=== PATIENT | female | born 1960 | race Caucasian/White ===

== ENCOUNTER 2024-10-21 03:02 | Emergency (ER) | payer BC, OTHER ==
--- OUTSIDE RECORDS SUMMARY | 2024-10-21 03:05 | XMS REPORT | Continuity of Care Document ---
Author Name Unknown Address [address] [facility] [address] [place] [address] Organization [facility] [place] Address [address] [facility] [address] [place] [address] Care Team Providers Care Electronic Technologist Name Role Phone Mindi Lopez Attending Clinician Unavailable [email or web address]_Kadiyala_S Attending Clinician Unavaila ble GC_GCBZW_Kadiyala_S Admitting Clinician Unavaila ble Payers Payer Name Policy Type Policy Number Effective Date Expirati on Date Source Blue Cross Blue [facility] 6 [id number] [facility] Problems Condition Name Condition Details Condition Category Status Onset Date Resolution Date Last Treatment Date Treating Clinician Comments Source Allergic rhinitis Seasonal and perennial allergic rhinitis Problem [facility] [id number] BMI 50.0-59.9, adult Problem [facility] [id number] Encounter for general adult medical examinatio n with abnormal findings Problem [facility] Obstructiv e sleep apnea Obstructiv e sleep apnea Problem [facility] Morbid obesity Morbid obesity Problem [facility] Hypertensi on Hypertensi on Problem [facility] Hyperlipid emia Hyperlipid emia Problem [facility] [id number] Prediabete s Problem [facility] Allergies, Adverse Reactions, Alerts Allergy Name Allergy Type Status Severity Reaction(s) Onset Date Inactive Date Treating Clinician Comments Source 463 Drug allergy Active swelling [facility] 0 Drug allergy Active rash [facility] Social History Social Habit Start Date Stop Date Quantity Comments Source History of Tobacco Use [facility] Sex Assigned At [facility] Smoking Status Start Date Stop Date Source Never Smoker [facility] Former Smoker 2023-10-17 00:00:00 2023-10-17 00:00:00 [facility] Medications Ordered Medication Name Filled Medication Name Start Date Stop Date Current Medication? Ordering Clinician Indication Dosage Frequency Signature (SIG) Comments Components Source Zepbound 2.5 MG/0.5ML Zepbound 2.5 MG/0.5ML 09-22 00:00: 00 No .5{ml} Zepbound 2.5 MG/0.5ML Rosuvastati n Calcium 20 MG Rosuvastati n Calcium 20 MG No 1{table t} QD Rosuvastat in Calcium 20 MG Cetirizine HCl 10 MG Cetirizine HCl 10 MG No 1{table t} Cetirizine HCl 10 MG Losartan Potassium-H CTZ 100-25 MG Losartan Potassium-H CTZ 100-25 MG No 1{table t} QD Losartan Potassium- HCTZ 100-25 MG Aspirin 81 81 MG Aspirin 81 81 MG No 1{table t} QD Aspirin 81 81 MG Immunizations Ordered Immunization Name Filled Immunization Name Date Status Comments Source Moderna COVID-19 Vaccine Moderna COVID-19 Vaccine 2020-06-25 16:56:00 Completed [facility] Moderna COVID-19 Vaccine Moderna COVID-19 Vaccine 2020-06-25 16:56:00 Completed [facility] Moderna COVID-19 Vaccine Moderna COVID-19 Vaccine 2020-06-25 16:56:00 Completed [facility] Moderna COVID-19 Vaccine Moderna COVID-19 Vaccine 2020-05-24 16:55:00 Completed [facility] Moderna COVID-19 Vaccine Moderna COVID-19 Vaccine 2020-05-24 16:55:00 Completed [facility] Moderna COVID-19 Vaccine Moderna COVID-19 Vaccine 2020-05-24 16:55:00 Completed [facility] Flucelvax - single dose syringe Flucelvax - single dose syringe 2020-02-17 15:50:00 Completed [facility] Flucelvax - single dose syringe Flucelvax - single dose syringe 2020-02-17 15:50:00 Completed [facility] Flucelvax - single dose syringe Flucelvax - single dose syringe 2020-02-17 15:50:00 Completed [facility] Shingrix Shingrix 2018-12-31 15:52:00 Completed [facility] Shingrix Shingrix 2018-12-31 15:52:00 Completed [facility] Shingrix Shingrix 2018-12-31 15:52:00 Completed [facility] Adacel (Tdap) Adacel (Tdap) 2018-08-28 10:38:00 Completed [facility] Adacel (Tdap) Adacel (Tdap) 2018-08-28 10:38:00 Completed [facility] Adacel (Tdap) Adacel (Tdap) 2018-08-28 10:38:00 Completed [facility] TDAP > 7 Years-Adacel TDAP > 7 Years-Adacel 2018-08-28 00:00:00 Completed [facility] Moderna COVID-19 Vaccine Moderna COVID-19 Vaccine Unknown Completed [facility] Shingrix Shingrix Unknown Completed [facility] Flucelvax - single dose syringe Flucelvax - single dose syringe Unknown Completed [facility] Adacel (Tdap) Adacel (Tdap) Unknown Completed [facility] Moderna COVID-19 Vaccine Moderna COVID-19 Vaccine Unknown Completed [facility] Shingrix Shingrix Unknown Completed [facility] Flucelvax - single dose syringe Flucelvax - single dose syringe Unknown Completed [facility] Adacel (Tdap) Adacel (Tdap) Unknown Completed [facility] Moderna COVID-19 Vaccine Moderna COVID-19 Vaccine Unknown Completed [facility] Moderna COVID-19 Vaccine Moderna COVID-19 Vaccine Unknown Completed [facility] Shingrix Shingrix Unknown Completed [facility] Flucelvax - single dose syringe Flucelvax - single dose syringe Unknown Completed [facility] Adacel (Tdap) Adacel (Tdap) Unknown Completed [facility] Moderna COVID-19 Vaccine Moderna COVID-19 Vaccine Unknown Completed [facility] Shingrix Shingrix Unknown Completed [facility] Flucelvax - single dose syringe Flucelvax - single dose syringe Unknown Completed [facility] Adacel (Tdap) Adacel (Tdap) Unknown Completed [facility] Moderna COVID-19 Vaccine Moderna COVID-19 Vaccine Unknown Completed [facility] Shingrix Shingrix Unknown Completed [facility] Flucelvax - single dose syringe Flucelvax - single dose syringe Unknown Completed [facility] Adacel (Tdap) Adacel (Tdap) Unknown Completed [facility] Moderna COVID-19 Vaccine Moderna COVID-19 Vaccine Unknown Completed [facility] Shingrix Shingrix Unknown Completed [facility] Flucelvax (ccIIV4) - SDS - 0.5mL Flucelvax (ccIIV4) - SDS - 0.5mL Unknown Completed [facility] Adacel (Tdap) Adacel (Tdap) Unknown Completed [facility] Moderna COVID-19 Vaccine Moderna COVID-19 Vaccine Unknown Completed [facility] Shingrix Shingrix Unknown Completed [facility] Flucelvax (ccIIV4) - SDS - 0.5mL Flucelvax (ccIIV4) - SDS - 0.5mL Unknown Completed [facility] Adacel (Tdap) Adacel (Tdap) Unknown Completed [facility] Moderna COVID-19 Vaccine Moderna COVID-19 Vaccine Unknown Completed [facility] Shingrix Shingrix Unknown Completed [facility] Flucelvax (ccIIV4) - SDS - 0.5mL Flucelvax (ccIIV4) - SDS - 0.5mL Unknown Completed [facility] Adacel (Tdap) Adacel (Tdap) Unknown Completed [facility] Vital Signs Vital Name Observation Time Observation Value Comments S ource height 2024-09-22 15:00:00 60 [in_i] [facility] weight 2024-09-22 15:00:00 277.4 [lb_av] [facility] temperature 2024-09-22 15:00:00 97.9 [degF] [facility] bmi 2024-09-22 15:00:00 54.17 kg/m2 [facility] oximetry 2024-09-22 15:00:00 98 % [facility] respiratory rate 2024-09-22 15:00:00 16 /min [facility] blood pressure systolic 2024-09-22 15:00:00 136 mm[Hg] [facility] blood pressure diastolic 2024-09-22 15:00:00 63 mm[Hg] [facility] height 2024-07-24 08:20:00 60 [in_i] [facility] weight 2024-07-24 08:20:00 266.0 [lb_av] Co [facility] temperature 2024-07-24 08:20:00 100.2 [degF] [facility] bmi 2024-07-24 08:20:00 51.94 kg/m2 [facility] oximetry 2024-07-24 08:20:00 96 % [facility] respiratory rate 2024-07-24 08:20:00 15 /min [facility] blood pressure systolic 2024-07-24 08:20:00 111 mm[Hg] [facility] blood pressure diastolic 2024-07-24 08:20:00 56 mm[Hg] Common [facility] height 2024-05-22 15:00:00 60 [in_i] [facility] weight 2024-05-22 15:00:00 278.8 [lb_av] Co [facility] temperature 2024-05-22 15:00:00 98 [degF] [facility] bmi 2024-05-22 15:00:00 54.44 kg/m2 [facility] oximetry 2024-05-22 15:00:00 93 % [facility] respiratory rate 2024-05-22 15:00:00 16 /min [facility] blood pressure systolic 2024-05-22 15:00:00 110 mm[Hg] [facility] blood pressure diastolic 2024-05-22 15:00:00 78 mm[Hg] [facility] height 2024-05-22 15:00:00 60 [in_i] [facility] weight 2024-05-22 15:00:00 278.8 [lb_av] [facility] temperature 2024-05-22 15:00:00 98 [degF] [facility] bmi 2024-05-22 15:00:00 54.44 kg/m2 [facility] oximetry 2024-05-22 15:00:00 93 % [facility] respiratory rate 2024-05-22 15:00:00 16 /min [facility] blood pressure systolic 2024-05-22 15:00:00 110 mm[Hg] [facility] blood pressure diastolic 2024-05-22 15:00:00 78 mm[Hg] [facility] height 2024-01-21 15:00:00 60 [in_i] [facility] weight 2024-01-21 15:00:00 277.8 [lb_av] Co [facility] temperature 2024-01-21 15:00:00 97.5 [degF] Com [facility] bmi 2024-01-21 15:00:00 54.25 kg/m2 [facility] oximetry 2024-01-21 15:00:00 97 % [facility] respiratory rate 2024-01-21 15:00:00 16 /min [facility] blood pressure systolic 2024-01-21 15:00:00 124 mm[Hg] [facility] blood pressure diastolic 2024-01-21 15:00:00 78 mm[Hg] [facility] height 2023-10-18 15:00:00 60 [in_i] [facility] weight 2023-10-18 15:00:00 281.6 [lb_av] Co [facility] temperature 2023-10-18 15:00:00 98.2 [degF] Com [facility] bmi 2023-10-18 15:00:00 54.99 kg/m2 [facility] oximetry 2023-10-18 15:00:00 95 % [facility] respiratory rate 2023-10-18 15:00:00 16 /min [facility] blood pressure systolic 2023-10-18 15:00:00 128 mm[Hg] [facility] blood pressure diastolic 2023-10-18 15:00:00 72 mm[Hg] [facility] height 2023-06-18 14:20:00 60 [in_i] [facility] weight 2023-06-18 14:20:00 276.4 [lb_av] [facility] temperature 2023-06-18 14:20:00 97.8 [degF] Com [facility] bmi 2023-06-18 14:20:00 53.97 kg/m2 [facility] oximetry 2023-06-18 14:20:00 98 % [facility] respiratory rate 2023-06-18 14:20:00 16 /min [facility] blood pressure systolic 2023-06-18 14:20:00 132 mm[Hg] [facility] blood pressure diastolic 2023-06-18 14:20:00 76 mm[Hg] [facility] height 2023-03-14 10:40:00 60 [in_i] [facility] weight 2023-03-14 10:40:00 276.4 [lb_av] [facility] temperature 2023-03-14 10:40:00 98.1 [degF] [facility] bmi 2023-03-14 10:40:00 53.97 kg/m2 [facility] oximetry 2023-03-14 10:40:00 97 % [facility] respiratory rate 2023-03-14 10:40:00 16 /min [facility] blood pressure systolic 2023-03-14 10:40:00 124 mm[Hg] [facility] blood pressure diastolic 2023-03-14 10:40:00 86 mm[Hg] [facility] height 2023-03-14 10:40:00 60 [in_i] [facility] weight 2023-03-14 10:40:00 276.4 [lb_av] [facility] temperature 2023-03-14 10:40:00 98.1 [degF] [facility] bmi 2023-03-14 10:40:00 53.97 kg/m2 [facility] oximetry 2023-03-14 10:40:00 97 % [facility] respiratory rate 2023-03-14 10:40:00 16 /min [facility] blood pressure systolic 2023-03-14 10:40:00 124 mm[Hg] [facility] blood pressure diastolic 2023-03-14 10:40:00 86 mm[Hg] [facility] height 2022-10-17 16:20:00 60 [in_i] [facility] weight 2022-10-17 16:20:00 272.4 [lb_av] [facility] temperature 2022-10-17 16:20:00 98.8 [degF] [facility] bmi 2022-10-17 16:20:00 53.19 kg/m2 [facility] oximetry 2022-10-17 16:20:00 96 % [facility] respiratory rate 2022-10-17 16:20:00 16 /min [facility] blood pressure systolic 2022-10-17 16:20:00 138 mm[Hg] [facility] blood pressure diastolic 2022-10-17 16:20:00 71 mm[Hg] [facility] height 2022-05-24 16:00:00 60 [in_i] [facility] weight 2022-05-24 16:00:00 267 [lb_av] [facility] temperature 2022-05-24 16:00:00 99.0 [degF] [facility] bmi 2022-05-24 16:00:00 52.14 kg/m2 [facility] oximetry 2022-05-24 16:00:00 97 % [facility] respiratory rate 2022-05-24 16:00:00 17 /min [facility] blood pressure systolic 2022-05-24 16:00:00 138 mm[Hg] [facility] blood pressure diastolic 2022-05-24 16:00:00 78 mm[Hg] [facility] height 2022-02-20 16:20:00 60 [in_i] [facility] weight 2022-02-20 16:20:00 264.8 [lb_av] [facility] temperature 2022-02-20 16:20:00 98.5 [degF] Com [facility] bmi 2022-02-20 16:20:00 51.71 kg/m2 [facility] oximetry 2022-02-20 16:20:00 95 % [facility] respiratory rate 2022-02-20 16:20:00 20 /min [facility] blood pressure systolic 2022-02-20 16:20:00 118 mm[Hg] [facility] blood pressure diastolic 2022-02-20 16:20:00 58 mm[Hg] [facility] height 2021-11-21 16:20:00 60 [in_i] [facility] weight 2021-11-21 16:20:00 270 [lb_av] [facility] temperature 2021-11-21 16:20:00 97.5 [degF] [facility] bmi 2021-11-21 16:20:00 52.73 kg/m2 [facility] oximetry 2021-11-21 16:20:00 97 % [facility] respiratory rate 2021-11-21 16:20:00 18 /min [facility] blood pressure systolic 2021-11-21 16:20:00 128 mm[Hg] [facility] blood pressure diastolic 2021-11-21 16:20:00 76 mm[Hg] [facility] height 2021-08-22 16:20:00 60 [in_i] [facility] weight 2021-08-22 16:20:00 281 [lb_av] [facility] temperature 2021-08-22 16:20:00 98.6 [degF] [facility] bmi 2021-08-22 16:20:00 54.87 kg/m2 [facility] oximetry 2021-08-22 16:20:00 97 % [facility] respiratory rate 2021-08-22 16:20:00 18 /min [facility] blood pressure systolic 2021-08-22 16:20:00 119 mm[Hg] [facility] blood pressure diastolic 2021-08-22 16:20:00 50 mm[Hg] [facility] Encounters Start Date/Time End Date/Time Encounter Type Admission Type Attending Clinicians Care Facility Care Department Encounter ID Source 2024-05-22 15:22:[address] [facility] [id number] [facility] 2024-01-17 08:01:00 Outpatient MoffatMindi amaya [facility] [id number] [facility] 2023-06-12 09:20:00 Outpatient Minid Lopez STGIANCARLO [facility] [id number] [facility] 2022-05-23 09:14:00 Outpatient Mindi Lopez [facility] [id number] [facility] 2021-11-17 09:10:01 Outpatient Mindi Lopez [facility] [id number] [facility] 2024-09-22 00:00:00 2024-09-22 00:00:00 OFFICE VISIT ESTAB PT LEVEL 4 [facility] [id number] [facility] 2024-09-11 00:00:00 2024-09-11 00:00:00 (TEL) [facility] [id number] [facility] 2024-07-24 00:00:00 2024-07-24 00:00:00 OFFICE VISIT ESTAB PT LEVEL 3 [facility] ST[facility] [id number] [facility] 2024-05-22 00:00:00 2024-05-22 00:00:00 OFFICE VISIT ESTAB PT LEVEL 4 [facility] [id number] [facility] 2024-01-21 00:00:00 2024-01-21 00:00:00 OFFICE VISIT ESTAB PT LEVEL 4 [facility] [id number] [facility] 2023-11-19 00:00:00 2023-11-19 00:00:00 (TEL) [facility]C ST[facility] [id number] [facility] 2023-11-14 00:00:00 2023-11-14 00:00:00 (TEL) [facility]C ST[facility] [id number] [facility] 2023-10-18 00:00:00 2023-10-18 00:00:00 (ESTPTWM) Establishe d PT Women [facility] ST[facility] [id number] [facility] 2023-06-18 00:00:00 2023-06-18 00:00:00 (ESTPTWM) Establishe d PT Women [facility] ST[facility] [id number] [facility] 2023-03-23 00:00:00 2023-03-23 00:00:00 Outpatient GC_GCBZW_Ka diyala_S [facility] [id number] [facility] 2023-03-14 00:00:00 2023-03-14 00:00:00 PREV VISIT EST AGE 40-64 [facility]C STL[facility]C [id number] [facility] 2022-10-24 00:00:00 2022-10-24 00:00:00 (TEL) STLMLC STL[facility]C [id number] [facility] 2022-10-18 00:00:00 2022-10-18 00:00:00 (TEL) [facility]C ST[facility] [id number] [facility] 2022-10-17 00:00:00 2022-10-17 00:00:00 PREV VISIT EST AGE 40-64 [facility]C STL[facility]C [id number] [facility] 2022-08-24 00:00:00 2022-08-24 00:00:00 (TEL) STLMLC ST[facility]C [id number] [facility] 2022-05-24 00:00:00 2022-05-24 00:00:00 PREV VISIT EST AGE 40-64 [facility] ST[facility] [id number] [facility] 2022-02-20 00:00:00 2022-02-20 00:00:00 OFFICE VISIT EST PT LEVEL 3 [facility] ST[facility]C [id number] [facility] 2021-11-21 00:00:00 2021-11-21 00:00:00 OFFICE VISIT ESTAB PT LEVEL 3 [facility] [id number] [facility] 2021-08-22 00:00:00 2021-08-22 00:00:00 OFFICE VISIT ESTAB PT LEVEL 4 [facility] [id number] [facility] 2021-02-16 00:00:00 2021-02-16 00:00:00 Outpatient [facility] [id number] [facility] 2020-08-23 00:00:00 2020-08-23 00:00:00 Outpatient [facility] [id number] [facility] 2020-05-13 00:00:00 2020-05-13 00:00:00 Outpatient [facility] [id number] [facility] 2020-03-10 00:00:00 2020-03-10 00:00:00 Outpatient [facility] [id number] [facility] 2020-02-23 00:00:00 2020-02-23 00:00:00 Outpatient [facility] [id number] [facility] 2019-12-03 09:50:00 2019-12-03 09:50:[address] [facility] [id number] [facility] 2019-08-21 16:20:00 2019-08-21 16:20:[address] [facility] [facility] [id number] [facility] 2019-08-04 09:11:00 2019-08-04 09:11:[address] [facility] [facility] [address] [facility] [id number] [facility] 2019-05-09 11:06:00 2019-05-09 11:06:[address] [facility] [facility] [address] [facility] [id number] [facility] 2019-04-08 14:20:00 2019-04-08 14:20:[address] [facility] [facility] [id number] [facility] 2019-02-20 16:40:00 2019-02-20 16:40:00 [facility] [id number] [facility] 2019-01-29 13:44:00 2019-01-29 13:44:00 [facility] [id number] [facility] 2019-01-28 14:20:00 2019-01-28 14:20:00 [facility] [id number] [facility] 2018-09-03 15:09:00 2018-09-03 15:09:00 [facility] Medicine [id number] [facility] 2018-08-28 10:20:00 2018-08-28 10:20:00 [facility] [id number] [facility] 2018-08-21 16:00:00 2018-08-21 16:00:00 Outpatient [facility] [id number] [facility] 2018-02-25 11:26:00 2018-02-25 11:26:00 [facility] [id number] [facility] 2018-02-21 15:45:00 2018-02-21 15:45:00 [facility] Medicine [id number] [facility] Results Test Description Test Time Test Comments Results Result Co mments Source CBC W/AUTO [id number] 00:00:00* Test Item Value Reference Range Interpretation Comme nts NUCLEATED RBCS (test code = 56982-5) 0.0 /100 WBC'S See_Comment [Automated messa ge] The system which generated this result transmitted reference range: 0.0 /100 WBC'S. The reference range was not used to interpret this result as normal/abnormal. ABSOLUTE EOSINOPHILS (test code = 93480-8) 0.27 K/UL See_Comment [Automated messa ge] The system which generated this result transmitted reference range: 0.00-0.50 K/UL. The reference range was not used to interpret this result as normal/abnormal. ABSOLUTE LYMPHOCYTES (test code = 71531-2) 2.12 K/UL See_Comment [Automated messa ge] The system which generated this result transmitted reference range: 1.00-4.00 K/UL. The reference range was not used to interpret this result as normal/abnormal. ABSOLUTE MONOCYTES (test code = 79169-3) 0.52 K/UL See_Comment [Automated messa ge] The system which generated this result transmitted reference range: 0.20-1.00 K/UL. The reference range was not used to interpret this result as normal/abnormal. ABSOLUTE NEUTROPHILS (test code = 40896-8) 4.48 K/UL See_Comment [Automated messa ge] The system which generated this result transmitted reference range: 1.50-7.50 K/UL. The reference range was not used to interpret this result as normal/abnormal. BASOPHILS (test code = 44202-4) 0.4 % EOSINOPHILS (test code = 99760-6) 3.6 % HEMATOCRIT (test code = 88871-3) 41.9 % See_Comment [Automated messa ge] The system which generated this result transmitted reference range: 34.0-45.0 %. The reference range was not used to interpret this result as normal/abnormal. HEMOGLOBIN (test code = 718-7) 13.7 G/DL See_Comment [Automated messa ge] The system which generated this result transmitted reference range: 11.5-15.5 G/DL. The reference range was not used to interpret this result as normal/abnormal. LYMPHOCYTES (test code = 82809-3) 28.5 % MCH (test code = 28902-4) 28.4 PG See_Comment [Automated messa ge] The system which generated this result transmitted reference range: 25.0-33.0 PG. The reference range was not used to interpret this result as normal/abnormal. MCHC (test code = 55366-8) 32.7 G/DL See_Comment [Automated messa ge] The system which generated this result transmitted reference range: 31.0-36.0 G/DL. The reference range was not used to interpret this result as normal/abnormal. MCV (test code = 53876-2) 86.9 fL See_Comment [Automated messa ge] The system which generated this result transmitted reference range: 80.0-99.0 fL. The reference range was not used to interpret this result as normal/abnormal. MONOCYTES (test code = 73449-0) 7.0 % NEUTROPHILS (test code = 84103-9) 60.1 % PLATELET COUNT (test code = 86177-4) 244 K/UL See_Comment [Automated messa ge] The system which generated this result transmitted reference range: 130-400 K/UL. The reference range was not used to interpret this result as normal/abnormal. RBC (test code = 64657-5) 4.82 M/UL See_Comment [Automated messa ge] The system which generated this result transmitted reference range: 3.80-5.40 M/UL. The reference range was not used to interpret this result as normal/abnormal. RDW (test code = 24902-8) 13.4 % See_Comment [Automated messa ge] The system which generated this result transmitted reference range: 11.5-15.0 %. The reference range was not used to interpret this result as normal/abnormal. WBC (test code = 16367-2) 7.5 K/UL See_Comment [Automated messa ge] The system which generated this result transmitted reference range: 3.5-11.0 K/UL. The reference range was not used to interpret this result as normal/abnormal. CBC W/AUTO [id number] 00:00:00* Test Item Value Reference Range Interpretation Comme nts NUCLEATED RBCS (test code = 88806-4) 0.0 /100 WBC'S See_Comment [Automated messa ge] The system which generated this result transmitted reference range: 0.0 /100 WBC'S. The reference range was not used to interpret this result as normal/abnormal. ABSOLUTE EOSINOPHILS (test code = 82875-7) 0.19 K/UL See_Comment [Automated messa ge] The system which generated this result transmitted reference range: 0.00-0.50 K/UL. The reference range was not used to interpret this result as normal/abnormal. ABSOLUTE LYMPHOCYTES (test code = 37638-8) 2.42 K/UL See_Comment [Automated messa ge] The system which generated this result transmitted reference range: 1.00-4.00 K/UL. The reference range was not used to interpret this result as normal/abnormal. ABSOLUTE MONOCYTES (test code = 98839-6) 0.51 K/UL See_Comment [Automated messa ge] The system which generated this result transmitted reference range: 0.20-1.00 K/UL. The reference range was not used to interpret this result as normal/abnormal. ABSOLUTE NEUTROPHILS (test code = 74185-3) 3.64 K/UL See_Comment [Automated messa ge] The system which generated this result transmitted reference range: 1.50-7.50 K/UL. The reference range was not used to interpret this result as normal/abnormal. BASOPHILS (test code = 83185-8) 0.4 % EOSINOPHILS (test code = 95062-4) 2.8 % HEMATOCRIT (test code = 21322-5) 40.8 % See_Comment [Automated messa ge] The system which generated this result transmitted reference range: 34.0-45.0 %. The reference range was not used to interpret this result as normal/abnormal. HEMOGLOBIN (test code = 718-7) 13.7 G/DL See_Comment [Automated messa ge] The system which generated this result transmitted reference range: 11.5-15.5 G/DL. The reference range was not used to interpret this result as normal/abnormal. LYMPHOCYTES (test code = 38767-8) 35.5 % MCH (test code = 88837-0) 28.9 PG See_Comment [Automated messa ge] The system which generated this result transmitted reference range: 25.0-33.0 PG. The reference range was not used to interpret this result as normal/abnormal. MCHC (test code = 27597-1) 33.6 G/DL See_Comment [Automated messa ge] The system which generated this result transmitted reference range: 31.0-36.0 G/DL. The reference range was not used to interpret this result as normal/abnormal. MCV (test code = 09775-3) 86.1 fL See_Comment [Automated messa ge] The system which generated this result transmitted reference range: 80.0-99.0 fL. The reference range was not used to interpret this result as normal/abnormal. MONOCYTES (test code = 28282-8) 7.5 % NEUTROPHILS (test code = 07072-4) 53.5 % PLATELET COUNT (test code = 39571-7) 222 K/UL See_Comment [Automated messa ge] The system which generated this result transmitted reference range: 130-400 K/UL. The reference range was not used to interpret this result as normal/abnormal. RBC (test code = 58255-7) 4.74 M/UL See_Comment [Automated [employer]] The system which generated this result transmitted reference range: 3.80-5.40 M/UL. The reference range was not used to interpret this result as normal/abnormal. RDW (test code = 61926-0) 13.9 % See_Comment [Automated [employer]] The system which generated this result transmitted reference range: 11.5-15.0 %. The reference range was not used to interpret this result as normal/abnormal. WBC (test code = 22416-4) 6.8 K/UL See_Comment [Automated [employer]] The system which generated this result transmitted reference range: 3.5-11.0 K/UL. The reference range was not used to interpret this result as normal/abnormal. 3D SCR OVI BILAT W/CAD3D SCR OVI BILAT W/CAD
[2024-10-21] MEDS ORDERED: ONDANSETRON 4 MG/2 ML VIAL ONE (03:25)
[2024-10-21] MEDS ORDERED: MECLIZINE HCL 12.5 MG TAB ONE (03:26)
[2024-10-21 04:03] LABS: Absolute Eosinophils 0.2 K/uL (0-0.5); Absolute Lymphocytes (CBC) 2.3 K/uL (0.7-4.9); Absolute Monocytes 0.4 K/uL (0.1-1.3); Absolute Neutrophil 4.9 K/uL (1.8-8.0); Basophils % 0.3 % (0-1.3); Eosinophils % 2.8 % (0-4.4); Hematocrit 39.6 % (36.0-45.0); Hemoglobin 13.3 g/dL (12.0-15.0); Lymphocytes % 29.3 % (15.3-44.8); MCH 28.9 pg (27.0-35.0); MCHC 33.5 g/dL (32.0-36.0); MCV 86.1 fL (80-100); MPV 7.8 fL (7.6-11.3); Monocytes % 5.4 % (3.3-12.3); Neutrophils % 62.2 % (41.7-73.7); Platelets 230 thou/uL (152-406); Red Cell Distribution Width 14.9 % (12.1-15.2)
[2024-10-21 04:04] LABS: D-Dimer 0.447 FEUug/mL (0-0.500); PT Prothrombin Time 10.3 SECONDS (10-13.0); Protime INR 0.9
[2024-10-21 04:15] LABS: Albumin 3.6 g/dL (3.4-5.0); Albumin/Globulin Ratio 0.9 (1.1-1.8); Anion Gap 9.1 mEq/L (5.0-15.0); Bilirubin Direct 0.2 mg/dL (0-0.2); Bilirubin Indirect, Calculated 0.5 mg/dL (0.2-0.8); Bilirubin Total 0.7 mg/dL (0.2-1.0); Globulin 3.8 g/dL (2.3-3.5); Magnesium 1.5 mg/dL (1.6-2.4); Potassium 3.1 mEq/L (3.5-5.1); Protein, Total 7.4 g/dL (6.4-8.2); Troponin High Sensitivity 4.6 pg/mL (<58.9)
--- NOTE | 2024-10-21 05:20 | RAD REPORT ---
CLINICAL HISTORY: Vertigo. COMPARISON: None. TECHNIQUE: CT HEAD WITHOUT IV CONTRAST on 10/21/2024 4:06 AM CDT This exam was performed according to our departmental dose-optimization program, which includes autom ated exposure control, adjustment of the mA and/or kV according to patient size and/or use of iterative reconstruction technique. FINDINGS: There is no acute hemorrhage, mass effect or midline shift. Jasso-white differentiation is preserved. There is no hydrocephalus. There is no significant volume loss for age. The calvarium is intact. Orbits and globes are unremarkable. The paranasal sinuses are clear. Mastoid air cells are clear. IMPRESSION: No acute intracranial findings. Electronically signed by: José Miguel Barton MD 10/21/2024 05:17 AM CDT RP Due to temporary technical issues with the PACS/[employer] reporting system, reports are being sanjay d by the in-house radiologist without review as a courtesy to ensure prompt reporting the interpreting radiologist is fully responsible for the content of the report. Transcribed Date/Time: 10/21/2024 5:20 AM
[2024-10-21] MEDS ORDERED: POTASSIUM 25 MEQ EFFERV TAB ONE (05:34)
--- NOTE | 2024-10-21 05:47 | ER ---
Nurse's Notes [facility] Name: Dorothea Veliz Age: 64 yrs Sex: Female : 1960 Arrival Date: 10/21/2024 Time: 03:02 Bed 5 Private MD: Diagnosis: Nausea;Other peripheral vertigo, bilateral;Benign peripheral positional vertigo, elevated alkaline phosphatase Presentation: 10/21 03:02 Chief complaint: Patient states: I woke up very dizzy, the room was spinning. I got bm8 nauseous and vomited but then felt better. Now Im just dizzy when I move. 03:02 Coronavirus screen: At this time, the client does not indicate any symptoms associated bm8 with coronavirus-19. Ebola Screen: Patient negative for fever greater than or equal to 101.5 degrees Fahrenheit, and additional compatible Ebola Virus Disease symptoms Patient denies exposure to infectious person. Patient denies travel to an Ebola-affected area in the 21 days before illness onset. No symptoms or risks identified at this time. Initial Sepsis Screen: Does the patient meet any 2 criteria? No. Patient's initial sepsis screen is negative. Does the patient have a suspected source of infection? No. Patient's initial sepsis screen is negative. Risk Assessment: Do you want to hurt yourself or someone else? Patient reports no desire to harm self or others. Onset of symptoms was October 21, 2024 at 02:30. 03:02 Method Of Arrival: EMS: [facility] bm8 03:02 Acuity: KIMBERLEY 3 bm8 Triage Assessment: 03:16 General: Appears in no apparent distress. comfortable, Behavior is calm, cooperative, bm8 appropriate for age. Pain: Denies pain. EENT: No deficits noted. No signs and/or symptoms were reported regarding the EENT system. Neuro: Level of Consciousness is awake, alert, obeys commands, Oriented to person, place, time, situation, Appropriate for age Reports dizziness. Cardiovascular: Reports lightheadedness, Denies chest pain, Heart tones S1 S2 present. Respiratory: Airway is patent Respiratory effort is even, unlabored, Respiratory pattern is regular, symmetrical, Breath sounds are clear bilaterally. GI: Abdomen is obese, Reports nausea. : No signs and/or symptoms were reported regarding the genitourinary system. Derm: No signs and/or symptoms reported regarding the dermatologic system. Musculoskeletal: No signs and/or symptoms reported regarding the musculoskeletal system. Historical: - Allergies: 03:16 PENICILLINS; bm8 - Home Meds: 03:16 rosuvastatin oral [Active]; Lisinopril Oral [Active]; bm8 - PMHx: 03:16 Hypertensive disorder; Hypercholesterolemia; bm8 - PSHx: 03:16 None; bm8 - Immunization history:: Adult Immunizations up to date. - Infectious Disease History:: Denies. - Social history:: Smoking status: Patient denies any tobacco usage or history of. Patient/guardian denies using alcohol, street drugs. - Family history:: not pertinent. Screenin:21 [facility] ED Fall Risk Assessment (Adult) History of falling in the last 3 months, bm8 including since admission No falls in past 3 months (0 pts) Confusion or Disorientation No (0 pts) Intoxicated or Sedated No (0 pts) Impaired Gait No (0 pts) Mobility Assist Device Used No (0 pt) Altered Elimination No (0 pt) Score/Fall Risk Level 0 - 2 = Low Risk Oriented to surroundings, Maintained a safe environment, Educated pt \T\ family on fall prevention, incl call for assistance when getting out of bed, Assessed \T\ reinforced patient's understanding of fall precautions, Hourly rounding (assess needs \T\ fall precautionary measures) done, Used ambulatory aids as needed (educated on \T\ assisted with), Used gait belt as appropriate. Abuse screen: Denies threats or abuse. Nutritional screening: No deficits noted. Tuberculosis screening: No symptoms or risk factors identified. Assessment: 03:21 Reassessment: see triage assessment. bm8 04:12 Reassessment: Patient appears in no apparent distress at this time. Patient and/or bm8 family updated on plan of care and expected duration. Pain level reassessed. Patient is alert, oriented x 3, equal unlabored respirations, skin warm/dry/pink. Patient denies pain at this time. Patient states feeling better. Patient states symptoms have improved. GI: Patient currently denies nausea. 05:40 Reassessment: Patient appears in no apparent distress at this time. No changes from bm8 previously documented assessment. Patient is alert, oriented x 3, equal unlabored respirations, skin warm/dry/pink. Patient denies pain at this time. Patient states feeling better. Patient states symptoms have improved. Neuro: Denies dizziness. GI: Patient currently denies nausea. Vital Signs: 03:02 BP 159 / 74; Pulse 57; Resp 16; Temp 97.1; Pulse Ox 96% ; Weight 127.91 kg; Height 5 bm8 ft. 0 in. ; Pain 0/10; 04:12 BP 140 / 83; Pulse 52; Resp 16; Temp 97.1; Pulse Ox 95% ; Pain 0/10; bm8 05:40 BP 127 / 86; Pulse 61; Resp 18; Temp 97.1; Pulse Ox 98% ; Pain 0/10; bm8 03:02 Body Mass Index 55.07 (127.91 kg, 152.4 cm) bm8 03:02 Pain Scale: Adult bm8 04:12 Pain Scale: Adult bm8 05:40 Pain Scale: Adult bm8 [place] Score: 03:21 Eye Response: spontaneous(4). Motor Response: obeys commands(6). Verbal Response: bm8 oriented(5). Total: 15. 04:12 Eye Response: spontaneous(4). Motor Response: obeys commands(6). Verbal Response: bm8 oriented(5). Total: 15. 05:40 Eye Response: spontaneous(4). Motor Response: obeys commands(6). Verbal Response: bm8 oriented(5). Total: 15. 19:27 Eye Response: spontaneous(4). Motor Response: obeys commands(6). Verbal Response: sp4 oriented(5). Total: 15. NIH Stroke Scale Scores: 19:27 NIHSS Score: 0 sp4 ED Course: 03:03 Patient arrived in ED. jj6 03:10 Aura Alejandro, RN is Primary Nurse. kd3 03:10 Inserted saline lock: 20 gauge in left forearm, using aseptic technique. Blood kd3 collected. Flushed with 10 mL NS. 03:16 Triage completed. bm8 03:16 Arm band placed on right wrist. bm8 03:21 No provider procedures requiring assistance completed. Initial lab(s) drawn, by ED bm8 staff, sent to lab. EKG done, by ED staff, reviewed by Barry Aguilar MD. Patient maintains SpO2 saturation greater than 95% on room air. 03:21 Patient has correct armband on for positive identification. Bed in low position. Call bm8 light in reach. Side rails up X2. Adult w/ patient. Client placed on continuous cardiac and pulse oximetry monitoring. NIBP monitoring applied. traffic monitor specialist on. Pulse ox on. NIBP on. Door closed. Noise minimized. Warm blanket given. Pillow given. Verbal reassurance given. Head of bed elevated. 03:22 Barry Aguilar MD is Attending Physician. sp4 04:00 XRAY Chest (1 view) In Process Unspecified. EDMS 04:32 CT Head Brain wo Cont In Process Unspecified. EDMS 05:40 IV discontinued, intact, bleeding controlled, No redness/swelling at site. Pressure bm8 dressing applied. 05:40 Provided Education on: post er care. bm8 Administered Medications: 03:31 Drug: Ondansetron IVP 8 mg IVP once; over 2 minutes Route: IVP; Site: left forearm; bm8 04:09 Follow up: Response: No adverse reaction bm8 03:31 Drug: Meclizine PO 50 mg PO once Route: PO; bm8 04:09 Follow up: Response: No adverse reaction bm8 05:41 Not Given (Patient Refused): [id number] mg PO once bm8 05:41 Drug: Potassium PO Effervescent Tablet 50 mEq PO once; dissolve in 4 ounces of water or bm8 juice Route: PO; 05:41 Follow up: Response: No adverse reaction bm8 Medication: 03:21 VIS not applicable for this client. bm8 Outcome: 05:40 Discharged to home via wheelchair, with family, 8 05:40 Condition: stable 05:40 Discharge instructions given to patient, family, Instructed on discharge instructions, follow up and referral plans. no drinking with medication, no driving heavy equipment, medication usage, safety practices, Demonstrated understanding of instructions, follow-up care, medications, Prescriptions given X 2, 05:46 Discharge ordered by . sp4 05:57 Patient left the ED. bm8 NIH Stroke Scale - NIH Stroke Score Date: 10/21/2024 Time: 19:27 Total Score = 0 10. Dysarthria (speech clarity - read or repeat words) - 0(Normal) 11. Extinction and Inattention (visual/tactile/auditory/spatial/personal) - 0(No abnormality) 1a. Level of Consciousness (LOC) - 0(Alert) 1b. Level of Consciousness (LOC) (Month \T\ Age) - 0(Both) 1c. LOC Commands (Open \T\ Closes Eyes/Marketing Assistant Manager) - 0(Both) 2. Best Gaze (Lateral Gaze Paresis) - 0(Normal) 3. Visual Field Loss - 0(No visual loss) 4. Facial Palsy - 0(Normal) 5a. Left Arm: Motor (10-second hold) - 0(No drift) 5b. Right Arm: Motor (10-second hold) - 0(No drift) 6a. Left Leg: Motor (5-second hold - always test supine) - 0(No drift) 6b. Right Leg: Motor (5-second hold - always test supine) - 0(No drift) 7. Limb Ataxia (finger/nose \T\ heel/garcia - test with eyes open) - 0(Absent) 8. Sensory Loss (pinprick arms/legs/face) - 0(Normal) 9. Best Language: Aphasia (description/naming/reading) - 0(No aphasia) Initials: sp4 Signatures: Dispatcher [employer] EDBisi Jarquin jj6 Aura Alejandro RN RN kd3 Barry Aguilar MD MD sp4 Pedro Gutierres RN RN bm8 Corrections: (The following items were deleted from the chart) 03:18 03:16 Allergies: No Known Allergies; bm8 bm8
--- NOTE | 2024-10-21 05:47 | EDPHYS ---
Physician Documentation [facility] Name: Dorothea Veliz Age: 64 yrs Sex: Female : 1960 Arrival Date: 10/21/2024 Time: 03:02 Bed 5 Private MD: ED Physician Barry Aguilar HPI: 10/21 03:55 This 64 yrs old Female presents to ER via EMS with complaints of sp4 Nausea/Vomiting, Dizziness. 19:27 66-year-old female presents with complaint of nausea vomiting and dizziness.. Patient sp4 has developed acute vertigo just 2 hours prior to arrival. EMS reported elevated blood pressures.. Historical: - Allergies: 03:16 PENICILLINS; bm8 - Home Meds: 03:16 rosuvastatin oral [Active]; Lisinopril Oral [Active]; bm8 - PMHx: 03:16 Hypertensive disorder; Hypercholesterolemia; bm8 - PSHx: 03:16 None; bm8 - Immunization history:: Adult Immunizations up to date. - Infectious Disease History:: Denies. - Social history:: Smoking status: Patient denies any tobacco usage or history of. Patient/guardian denies using alcohol, street drugs. - Family history:: not pertinent. ROS: 19:27 Constitutional: Negative for fever, chills, and weight loss, positive vertigo, positive sp4 nausea vomiting, positive elevated blood pressure 19:27 All other systems are negative, Exam: 19:27 Constitutional: This is a well developed, well nourished patient who is awake, alert, sp4 and in no acute distress. Head/Face: Normocephalic, atraumatic. Eyes: Pupils equal round and reactive to light, extra-ocular motions intact. Lids and lashes normal. Conjunctiva and sclera are not injected. Cornea within normal limits. Periorbital areas with no swelling, redness, or edema. ENT: Nares patent. No nasal discharge, no septal abnormalities noted. Tympanic membranes are normal and external auditory canals are clear. Oropharynx with no redness, swelling, or masses, exudates, or evidence of obstruction, uvula midline. Mucous membranes moist. Neck: Trachea midline, no thyromegaly or masses palpated, and no cervical lymphadenopathy. Supple, full range of motion without nuchal rigidity, or vertebral point tenderness. Chest/axilla: Normal chest wall appearance and motion. Nontender with no deformity. No lesions are appreciated. Cardiovascular: Regular rate and rhythm with a normal S1 and S2. No gallops, murmurs, or rubs. Normal PMI, no JVD. No pulse deficits. Respiratory: Lungs have equal breath sounds bilaterally, clear to auscultation and percussion. No rales, rhonchi or wheezes noted. No increased work of breathing, no retractions or nasal flaring. Abdomen/GI: Soft, with normal bowel sounds. No distension or tympany. No guarding or rebound. No evidence of tenderness throughout. Back: No spinal tenderness. No costovertebral tenderness. Skin: Warm, dry with normal turgor. Normal color with no rashes, no lesions, and no evidence of cellulitis. MS/ Extremity: Pulses equal, no cyanosis. Neurovascular intact. Full, normal range of motion. Neuro: Awake and alert, GCS 15, oriented to person, place, time, and situation. Cranial nerves II-XII grossly intact. Motor strength 5/5 in all extremities. Sensory grossly intact. Psych: Awake, alert, with orientation to person, place and time. Behavior, mood, and affect are within normal limits Vital Signs: 03:02 BP 159 / 74; Pulse 57; Resp 16; Temp 97.1; Pulse Ox 96% ; Weight 127.91 kg; Height 5 bm8 ft. 0 in. ; Pain 0/10; 04:12 BP 140 / 83; Pulse 52; Resp 16; Temp 97.1; Pulse Ox 95% ; Pain 0/10; bm8 05:40 BP 127 / 86; Pulse 61; Resp 18; Temp 97.1; Pulse Ox 98% ; Pain 0/10; bm8 03:02 Body Mass Index 55.07 (127.91 kg, 152.4 cm) bm8 03:02 Pain Scale: Adult bm8 04:12 Pain Scale: Adult bm8 05:40 Pain Scale: Adult bm8 NIH Stroke Scale Scores: 19:27 NIHSS Score: 0 sp4 [place] Score: 03:21 Eye Response: spontaneous(4). Motor Response: obeys commands(6). Verbal Response: bm8 oriented(5). Total: 15. 04:12 Eye Response: spontaneous(4). Motor Response: obeys commands(6). Verbal Response: bm8 oriented(5). Total: 15. 05:40 Eye Response: spontaneous(4). Motor Response: obeys commands(6). Verbal Response: bm8 oriented(5). Total: 15. 19:27 Eye Response: spontaneous(4). Motor Response: obeys commands(6). Verbal Response: sp4 oriented(5). Total: 15. MDM: 03:22 Medical Screening Exam initiated sp4 19:28 Differential diagnosis: Nonspecific abd pain, gastritis, viral gastroenteritis, sp4 gastroenteritis. Data reviewed: vital signs, nurses notes, EMS record, old medical records, lab test result(s), EKG, radiologic studies, CT scan. Consideration of Admission/Observation Escalation of care including admission/observation considered. ED course: Vertigo has improved. Patient stable for discharge home. Patient was advised to have repeated alkaline phosphatase with primary care physician as well as dedicated liver imaging.. 10/21 03:24 Order name: Basic Metabolic Panel; Complete Time: 10/21 03:24 Order name: CBC with Diff; Complete Time: 10/21 03:24 Order name: D-Dimer; Complete Time: 10/21 03:24 Order name: LFT's; Complete Time: 10/21 03:24 Order name: Magnesium; Complete Time: 10/21 03:24 Order name: NT PRO-BNP; Complete Time: 10/21 03:24 Order name: PT-INR; Complete Time: 10/21 03:24 Order name: Troponin HS; Complete Time: 10/21 03:24 Order name: XRAY Chest (1 view) 10/21 04:06 Order name: CT Head Brain wo Cont 10/21 03:24 Order name: Cardiac monitoring; Complete Time: : 10/21 03:24 Order name: EKG - Nurse/Tech; Complete Time: : 10/21 03:24 Order name: IV Saline Lock; Complete Time: : 10/21 03:24 Order name: Labs collected and sent; Complete Time: 10/21 03:24 Order name: O2 Per Protocol; Complete Time: 03:30 bm8 10/21 03:24 Order name: O2 Sat Monitoring; Complete Time: 03:30 bm8 Administered Medications: 03:31 Drug: Ondansetron IVP 8 mg IVP once; over 2 minutes Route: IVP; Site: left forearm; bm8 04:09 Follow up: Response: No adverse reaction bm8 03:31 Drug: Meclizine PO 50 mg PO once Route: PO; bm8 04:09 Follow up: Response: No adverse reaction bm8 05:41 Not Given (Patient Refused): [id number] mg PO once bm8 05:41 Drug: Potassium PO Effervescent Tablet 50 mEq PO once; dissolve in 4 ounces of water or bm8 juice Route: PO; 05:41 Follow up: Response: No adverse reaction bm8 Disposition: 19:28 Chart complete. sp4 Disposition Summary: 10/21/24 05:46 Discharge Ordered Notes: Location: Home sp4 Problem: new sp4 Symptoms: have improved sp4 Condition: Stable sp4 Diagnosis - Nausea sp4 - Other peripheral vertigo, bilateral sp4 - Benign peripheral positional vertigo, elevated alkaline phosphatase sp4 Followup: sp4 - With: Private Physician - When: 7 - 10 days - Reason: Recheck today's complaints Discharge Instructions: - Discharge Summary Sheet sp4 - Benign Positional Vertigo sp4 Forms: - Patient Portal Instructions sp4 - Work release form bm8 Prescriptions: - Meclizine 25 mg Oral tablet - take 2 tablet ORAL route every 8 hours As needed PRN vertigo; 50 tablet; sp4 Refills: 0, Product Selection Permitted - ondansetron 8 mg Oral Tablet,disintegrating - take 1 tablet ORAL route every 8 hours PRN nausea; 30 tablet; Refills: 0, sp4 Product Selection Permitted NIH Stroke Scale - NIH Stroke Score Date: 10/21/2024 Time: 19:27 Total Score = 0 10. Dysarthria (speech clarity - read or repeat words) - 0(Normal) 11. Extinction and Inattention (visual/tactile/auditory/spatial/personal) - 0(No abnormality) 1a. Level of Consciousness (LOC) - 0(Alert) 1b. Level of Consciousness (LOC) (Month \T\ Age) - 0(Both) 1c. LOC Commands (Open \T\ Closes Eyes/Engine Assembler) - 0(Both) 2. Best Gaze (Lateral Gaze Paresis) - 0(Normal) 3. Visual Field Loss - 0(No visual loss) 4. Facial Palsy - 0(Normal) 5a. Left Arm: Motor (10-second hold) - 0(No drift) 5b. Right Arm: Motor (10-second hold) - 0(No drift) 6a. Left Leg: Motor (5-second hold - always test supine) - 0(No drift) 6b. Right Leg: Motor (5-second hold - always test supine) - 0(No drift) 7. Limb Ataxia (finger/nose \T\ heel/garcia - test with eyes open) - 0(Absent) 8. Sensory Loss (pinprick arms/legs/face) - 0(Normal) 9. Best Language: Aphasia (description/naming/reading) - 0(No aphasia) Initials: sp4 Signatures: Dispatcher [employer] EDMS Barry Aguilar MD MD sp4 Pedro Gutierres RN RN bm8 Corrections: (The following items were deleted from the chart) 03:18 03:16 Allergies: No Known Allergies; bm8 bm8 03:25 03:25 BASIC METABOLIC PANEL+C.LAB.BRZ ordered. EDMS EDMS 03:25 03:25 CBC+H.LAB.BRZ ordered. EDMS EDMS 03:25 03:25 D-DIMER+COAG.LAB.BRZ ordered. EDMS EDMS 03:25 03:25 HEPATIC FUNCTION+C.LAB.BRZ ordered. EDMS EDMS 03:25 03:25 MAGNESIUM+C.LAB.BRZ ordered. EDMS EDMS 03:25 03:25 PROBNP+C.LAB.BRZ ordered. EDMS EDMS 03:25 03:25 PROTIME (+INR)+COAG.LAB.BRZ ordered. EDMS EDMS 03:25 03:25 Troponin High Sensitivity+C.LAB.BRZ ordered. EDMS EDMS 03:25 03:25 Chest Single View+RAD.RAD.BRZ ordered. EDMS EDMS 04:06 04:06 Head Brain Wo Cont+CT.RAD.BRZ ordered. EDMS EDMS
--- NOTE | 2024-10-21 05:58 | RAD REPORT ---
CLINICAL HISTORY: Dizziness. COMPARISON: None. TECHNIQUE: XR CHEST 1 VIEW 10/21/2024 3:24 AM CDT FINDINGS: The heart is enlarged. Lungs are clear without consolidation, atelectasis, mass or edema. There is no pleural effusion. There is no pneumothorax. There are no acute osseous findings. IMPRESSION: Clear lungs. Electronically signed by: José Miguel Barton MD 10/21/2024 04:42 AM CDT RP Due to temporary technical issues with the PACS/[employer] reporting system, reports are being sanjay d by the in-house radiologist without review as a courtesy to ensure prompt reporting the interpreting radiologist is fully responsible for the content of the report. Transcribed Date/Time: 10/21/2024 5:57 AM
[2024-10-21 06:02] VITALS: TEMP 97.1
[2024-10-21 06:06] VITALS: BP 127/86; O2SAT 98
--- NOTE | 2024-10-21 12:17 | EKG ---
Test Date: 2024-10-21 Test Time: 03:08:51 [place] Machine Operator: MICHAEL MEASUREMENT RESULTS: Intervals: Rate: 51 TX: 154 QRSD: 90 QT: 478 QTc: 440 [place]: P: 46 TX: 154 QRS: 8 T: 53 INTERPRETIVE STATEMENTS: Sinus bradycardia Otherwise normal ECG No previous ECG available for comparison Electronically Signed On 10-21-24 12:16:28 CDT by Mitchell Pedro
== END 2024-10-21 05:57 | disposition home or self-care (01) ==
LOC: ER 03:02
DX: H81.13 Benign paroxysmal vertigo, bilateral (principal); R74.8 Abnormal levels of other serum enzymes; I10 Essential (primary) hypertension; E78.00 Pure hypercholesterolemia, unspecified
CPT/HCPCS: 93005; 85025; 80048; 36415; 83735; 85610; 85379; 80076; 84484; 83880; 70450; 71045; 96374; 99285; J8597; J2405